=== PATIENT | male | born 1980 | race Caucasian/White ===

== ENCOUNTER 2017-06-04 11:29 | Emergency (ER) | payer OTHER, BC ==
--- NOTE | 2017-06-04 11:48 | EDM.PDOC ---
ED HPI GENERAL MEDICAL PROBLEM - General Stated Complaint: HEAD INJURY Time Seen by Provider: 06/04/17 11:48 Source of Information: Reports: Patient History Limitations: Reports: No Limitations - History of Present Illness INITIAL COMMENTS - FREE TEXT/NARRATIVE: HISTORY AND PHYSICAL: History of present illness: Patient is a 36-year-old male who presents to the emergency room with complaints of her scalp pain and jaw pain after being hit by a large rubber hose yesterday. He states while at work a large rubber hose swung up and hit him under the chin and flipped around hitting him in the left temporal area. He denies any loss of consciousness but states "I was pretty close". [facility] his mandible. He states his called his primary doctor today who requested he have a head CT for further evaluation as they felt that this was not adequate and imagine. He reports "I'm fine edges feel like I got beat up". Abrasion noted under his chin and along the left temporalis and cheek bone area. Musculoskeletal tenderness to the trapezius muscles. Review of systems: As per history of present illness and below otherwise all systems reviewed and negative. Past medical history: As per history of present illness and as reviewed below otherwise noncontributory. Surgical history: As per history of present illness and as reviewed below otherwise noncontributory. Social history: No reported history of drug or alcohol abuse. Family history: As per history of present illness and as reviewed below otherwise noncontributory. Physical exam: General: Well-developed and well-nourished 36-year-old male. Alert and oriented. Nontoxic appearing and in no acute distress. HEENT: Abrasion noted under the chin and to the left temporalis/upper cheek bone area. Mild tenderness with palpation. No obvious deformities or crepitus. normocephalic, pupils equal and reactive bilaterally, negative for conjunctival pallor or scleral icterus, mucous membranes moist, throat clear, neck supple, nontender, trachea midline. No drooling or trismus noted. No meningeal signs Lungs: Clear to auscultation, breath sounds equal bilaterally, chest nontender. Heart: S1S2, regular rate and rhythm without overt murmur Abdomen: Soft, nondistended, nontender. Negative for masses or hepatosplenomegaly. Negative for costovertebral tenderness. Pelvis: Stable nontender. Genitourinary: Deferred. Rectal: Deferred. C-Spine/Back: No pinpoint vertebral tenderness upon palpation. No crepitus, step -offs or obvious deformities noted. Does fully ambulatory with no difficulty or deficits. No urinary or fecal incontinence. Able to walk on toes and heels without any difficulty. Skin: Abrasion noted under mid chin and to left temporal/upper check bone. Otherwise intact, warm, dry. No lesions or rashes noted. Multiple tattoos noted to exposed skin Extremities: Moves all extremities per self without difficulty or deficits. Full active range of motion. Nontender with palpation. He is negative for cords or calf pain. Neurovascular unremarkable. Neuro: Awake, alert, oriented. Cranial nerves II through XII unremarkable. Cerebellum unremarkable. Motor and sensory unremarkable throughout. Exam nonfocal. Notes: Physical examination is within normal limits. We will do a head CT as he does have abrasions to the lower mandible and temporal area. Tetanus was last updated [address] Head and C-spine CT shows no acute findings. I did share this with the patient. He has no further questions at this time. We'll discharge him to home with education. Diagnostics: Head CT Therapeutics: [] Impression: Head injury Abrasion Plan: 1. Please review the head injury instructions that have been printed for you. 2. Tylenol and/or ibuprofen as needed for pain management. Ice for the first 24 hours you may been alternate to gentle heat. 3. Follow-up with your primary caregiver as needed. Return to the ED as needed and as discussed. Definitive disposition and diagnosis as appropriate pending reevaluation and review of above. Duration: Day(s): Location: Reports: Head, Face Face Pain Score (Numeric/FACES): 5 - Related Data Allergies Allergy/AdvReac Type Severity Reaction Status Date / Time Penicillins Allergy Anaphylactic Verified 06/04/17 11:52 Shock Home Meds: Home Meds . [No Known Home Meds] 06/04/17 [History] ED ROS GENERAL - Review of Systems Review Of Systems: ROS reveals no pertinent complaints other than HPI. ED EXAM, HEAD INJURY - Physical Exam Exam: See Below (See dictation) Course - Vital Signs Last Recorded V/S: Last Vital Signs Temp 97.7 F 06/04/17 12:13 Pulse 81 06/04/17 12:13 Resp 16 06/04/17 12:13 BP 138/82 06/04/17 12:13 Pulse Ox 98 06/04/17 12:13 Departure - Departure Time of Disposition: 12:53 Disposition: Home, Self-Care 01 Clinical Impression: Abrasion Head injury Qualifiers: Encounter type: subsequent encounter Qualified Code(s): S09.90XD - Unspecified injury of head, subsequent encounter - Discharge Information Instructions: Head Injury, Adult, [id number], Abrasion Referrals: PCP,None [Primary Care Provider] - Additional Instructions: The following information is given to patients seen in the emergency department who are being discharged to home. This information is to outline your options for follow-up care. We provide all patients seen in our emergency department with a follow-up referral. The need for follow-up, as well as the timing and circumstances, are variable depending upon the specifics of your emergency department visit. If you don't have a primary care physician on staff, we will provide you with a referral. We always advise you to contact your personal physician following an emergency department visit to inform them of the circumstance of the visit and for follow-up with them and/or the need for any referrals to a consulting specialist. The emergency department will also refer you to a specialist when appropriate. This referral assures that you have the opportunity for follow-up care with a specialist. All of these measure are taken in an effort to provide you with optimal care, which includes your follow-up. Under all circumstances we always encourage you to contact your private physician who remains a resource for coordinating your care. When calling for follow-up care, please make the office aware that this follow-up is from your recent emergency room visit. If for any reason you are refused follow-up, please contact the [facility] at and asked to speak to the emergency department charge nurse. [facility] [address] [place] [id number] 1. Please review the head injury instructions that have been printed for you. 2. Tylenol and/or ibuprofen as needed for pain management. Ice for the first 24 hours you may been alternate to gentle heat. 3. Follow-up with your primary caregiver as needed. Return to the ED as needed and as discussed.
--- NOTE | 2017-06-04 12:36 | CT ---
EXAMINATION: Non contrast CT head. Coronal and sagittal reformats. HISTORY: Pain FINDINGS: No evidence of intra or extra axial hemorrhage, mass, midline shift, hydrocephalus or edema. No hypoattenuation changes in the major vascular territories to suggest acute infarct. No abnormal intracranial calcifications are detected. No evidence of substantial vascular calcificat ions. Paranasal sinuses and mastoid air cells are well aerated without substantial findings. Orbits and gl obes are symmetric. Pituitary fossa appears unremarkable. Calvarium is intact. No evidence of skull fracture. IMPRESSION: No acute intracranial findings.
--- NOTE | 2017-06-04 12:39 | CT ---
EXAMINATION: CT cervical spine HISTORY: Pain COMPARISON: None TECHNIQUE: Axial CT images obtained through the cervical spine without contrast. Coronal and sagittal reconstructions obtained. FINDINGS: The cervical spinal alignment is normal. The vertebral body heights and disc spaces appear well-maintained. There is no fracture or acute osseous abnormality demonstrated. Bone mineralization is normal. Early marginal osteophytes noted. Paravertebral soft tissues appear normal. The lung apice s are clear. IMPRESSION: No acute cervical spinal abnormality identified.
== END 2017-06-04 13:18 | disposition home or self-care (01) ==
LOC: MW.ED 11:29
DX: S00.81XA Abrasion of other part of head, initial encounter (principal); S09.90XA Unspecified injury of head, initial encounter; W22.8XXA Striking against or struck by other objects, initial encounter; Z88.0 Allergy status to penicillin
CPT/HCPCS: 70450; 70450-26; 72125; 72125-26; 99283-25

== ENCOUNTER 2017-07-03 07:22 | Emergency (ER) | payer BC, OTHER ==
--- NOTE | 2017-07-03 07:33 | EDM.PDOC ---
ED HPI GENERAL MEDICAL PROBLEM - General Stated Complaint: VISION PROBLEMS Time Seen by Provider: 07/03/17 07:32 Source of Information: Reports: Patient - History of Present Illness INITIAL COMMENTS - FREE TEXT/NARRATIVE: HISTORY AND PHYSICAL: History of present illness: Patient left before being seen. As per nursing patient did have a appointment with an eye doctor that he preferred to go to. We did call to confirm appointment. Review of systems: As per history of present illness and below otherwise all systems reviewed and negative. Past medical history: As per history of present illness and as reviewed below otherwise noncontributory. Surgical history: As per history of present illness and as reviewed below otherwise noncontributory. Social history: No reported history of drug or alcohol abuse. Family history: As per history of present illness and as reviewed below otherwise noncontributory. Physical exam: HEENT: Atraumatic, normocephalic, pupils reactive, negative for conjunctival pallor or scleral icterus, mucous membranes moist, throat clear, neck supple, nontender, trachea midline. Lungs: Clear to auscultation, breath sounds equal bilaterally, chest nontender. Heart: S1S2, regular, negative for clicks, rubs, or JVD. Abdomen: Soft, nondistended, nontender. Negative for masses or hepatosplenomegaly. Negative for costovertebral tenderness. Pelvis: Stable nontender. Genitourinary: Deferred. Rectal: Deferred. Extremities: Atraumatic, negative for cords or calf pain. Neurovascular unremarkable. Neuro: Awake, alert, oriented. Cranial nerves II through XII unremarkable. Cerebellum unremarkable. Motor and sensory unremarkable throughout. Exam nonfocal. Diagnostics: [] Therapeutics: [] Impression: [] Plan: Patient left before being seen. As per nursing patient did have a appointment with an eye doctor that he preferred to go to. We did call to confirm appointment. - Related Data Allergies Allergy/AdvReac Type Severity Reaction Status Date / Time Penicillins Allergy Anaphylactic Verified 06/04/17 11:52 Shock Home Meds: Home Meds . [No Known Home Meds] 06/04/17 [History] Past Medical History - Past Health History Medical/Surgical History: Denies Medical/Surgical History Cardiovascular History: Reports: None Respiratory History: Reports: None Gastrointestinal History: Reports: None Genitourinary History: Reports: None Musculoskeletal History: Reports: Amputation Other Musculoskeletal History: (R) hand fingers Neurological History: Reports: Concussion Psychiatric History: Reports: None Endocrine/Metabolic History: Reports: None Dermatologic History: Reports: None - Past Surgical History Head Surgeries/Procedures: Reports: None 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
== END 2017-07-03 07:57 | disposition left against medical advice (07) ==
LOC: MW.ED 07:22
DX: Z53.21 Procedure and treatment not carried out due to patient leaving prior to being seen by health care provider (principal); Z88.0 Allergy status to penicillin
CPT/HCPCS: 99283